=== PATIENT | female | born 1960 | race African-American/Black ===

== ENCOUNTER 2017-05-05 16:39 | Emergency (ER) | payer BC ==
[2012-10-13 22:44] VITALS: BMI 28.9
[2017-05-05 17:31] LABS: BASOPHILS 0.2 % (0-2); EOSINOPHILS 0.2 % (0-7); HEMATOCRIT 38.3 % (36.0-48.0); HEMOGLOBIN 12.6 g/dL (12-16); LYMPHOCYTES 30.6 % (15-50); MCH 29.7 pg (26.0-34.0); MCHC 32.9 g/dL (31.0-37.0); MCV 90.3 fL (80.0-100.0); MEAN PLATELET VOLUME 11.4 fL (7.4-10.4); MONOCYTES 6.2 % (2-11); NEUTROPHILS 62.8 % (40-80); PLATELET COUNT 217 10x3/uL (130-400); RBC 4.24 10x6/uL (4.00-5.40); WBC 6.1 10x3/uL (4.8-10.8)
[2017-05-05 17:38] LABS: APPEARANCE CLEAR (CLEAR); BILIRUBIN NEGATIVE (NEGATIVE); COLOR YELLOW (YELLOW); GLUCOSE NEGATIVE (NEGATIVE); KETONE NEGATIVE (NEGATIVE); NITRITE NEGATIVE (NEGATIVE); PROTEIN NEGATIVE (NEGATIVE); SPECIFIC GRAVITY 1.015 (1.005-1.020); UROBILINOGEN NORMAL (NORMAL)
[2017-05-05 17:51] LABS: ALBUMIN 3.7 g/dL (3.4-5.0); ANION GAP 16.6 mmol/L (8-16); BILIRUBIN - TOTAL 0.62 mg/dL (0.2-1.3); POTASSIUM - SERUM 3.6 mmol/L (3.5-5.1); PROTEIN - SERUM 8.7 g/dL (6.4-8.2)
[2017-05-05 19:42] LABS: CREATINE KINASE 100 UL (21-215)
[2017-05-05 19:44] LABS: TROPONIN-I < 0.017 ng/mL (0.000-0.060)
== END 2017-05-05 21:29 | disposition home or self-care (01) ==
LOC: D.ER 16:39
PROVIDERS: Emergency Medicine; Nurse Practitioner Family
DX: R53.1 Weakness (principal); F41.9 Anxiety disorder, unspecified; K21.9 Gastro-esophageal reflux disease without esophagitis

== ENCOUNTER 2017-08-23 13:11 | Emergency (ER) | payer BC | END 2017-08-23 20:38 | disposition home or self-care (01) | LOC: D.ER 13:11 | DX: J20.9 Acute bronchitis, unspecified (principal); B34.9 Viral infection, unspecified; K21.9 Gastro-esophageal reflux disease without esophagitis ==

== ENCOUNTER 2019-04-14 07:41 | Observation (INO) | payer BC ==
[~2019-04-14] VITALS: Ht 162.6 cm; Wt 81.8 kg
[2019-04-14] MEDS ORDERED: PROTONIX40 MG PO (07:51)
[2019-04-14 08:05] VITALS: BP 145/89
[2019-04-14 08:08] LABS: BASOPHILS 0 % (0-2); EOSINOPHILS 0.4 % (0-7); HEMATOCRIT 39.4 % (36.0-48.0); HEMOGLOBIN 12.8 g/dL (12-16); IMMATURE GRANULOCYTES 0.2 % (0-5); LYMPHOCYTES 46.6 % (15-50); MCH 28.8 pg (26.0-34.0); MCHC 32.5 g/dL (31.0-37.0); MCV 88.7 fL (80.0-100.0); MEAN PLATELET VOLUME 11.3 fL (7.4-10.4); MONOCYTES 7.4 % (2-11); NEUTROPHILS 45.4 % (40-80); PLATELET COUNT 238 10x3/uL (130-400); RBC 4.44 10x6/uL (4.00-5.40); RDW 14.1 % (11.5-14.5); WBC 4.6 10x3/uL (4.8-10.8)
[2019-04-14 08:21] LABS: APTT 37.3 SECONDS (22.8-39.4); INR 0.95 (0.85-1.17); PROTIME 12.2 SECONDS (11.6-15.0)
[2019-04-14 08:30] LABS: ALBUMIN 3.5 g/dL (3.4-5.0); ALKALINE PHOSPHATASE 105 U/L (46-116); ALT (SGPT) 17 U/L (10-68); BILIRUBIN - TOTAL 0.64 mg/dL (0.2-1.3); CALC OSMOLALITY 287 mosm/kg (275-300); CALCIUM 8.7 mg/dL (8.5-10.1); CARBON DIOXIDE 28.9 mmol/L (21.0-32.0); CHLORIDE - SERUM 107 mmol/L (98-107); GLUCOSE 86 mg/dL (74-106); POTASSIUM - SERUM 3.6 mmol/L (3.5-5.1); PROTEIN - SERUM 8.7 g/dL (6.4-8.2); SODIUM 145 mmol/L (136-145); UREA NITROGEN 12 mg/dL (7-18); eGFR NON AFRICAN AMERICAN 60 mL/min (90-120)
[2019-04-14 09:05] LABS: CKMB 0.2 U/L (0.0-3.6); CREATINE KINASE 74 UL (21-215); TROPONIN-I < 0.017 ng/mL (0.000-0.060)
--- NOTE | 2019-04-14 09:22 | NUR ---
PT TAKEN TO STRESS TEST VIA WC.
--- NOTE | 2019-04-14 09:58 | NUR ---
PT TAKEN TO GET STRESS TEST FROM ER. PT TO BE TAKEN FROM STRESS TEST TO ROOM 2126.
[2019-04-14 12:45] VITALS: BP 145/91
--- NOTE | 2019-04-14 13:00 | NUR ---
RECEIVED PT TO ROOM 2125 VIA WHEELCHAIR, PT A/O X4, RESP EVEN AND NONLABORED ON RA, ABLE TO TRANSFER SELF FROM WHEELCHAIR TO BED WITH STEADY GATE. RT AC IMELDA SL. ORIENTED PT TO ROOM AND CALL LIGHT, WILL ASSESS PT AND START PLAN OF CARE.
[2019-04-14 13:20] VITALS: BP 145/91; Ht 162.6 cm; Wt 81.8 kg
--- NOTE | 2019-04-14 15:21 | NUR ---
PT RESTING COMFORTABLY IN BED, DENIES ANY NEEDS AT THIS TIME. CALL LIGHT IN REACH, BEDSIDE RAILS X 2, NAD NOTED, WILL CONTINUE TO MONITOR.
[2019-04-14 15:36] LABS: CKMB 0.3 U/L (0.0-3.6); CREATINE KINASE 62 UL (21-215)
[2019-04-14 15:39] LABS: TROPONIN-I < 0.017 ng/mL (0.000-0.060)
--- NOTE | 2019-04-14 16:04 | HP ---
PATIENT: CLAUDIO MERA MEDICAL RECORD: [id number] ACCOUNT: [id number] LOCATION:[address] : 56 ADMISSION DATE: 04/14/19 PCP: DARREL GERMAIN HISTORY AND PHYSICAL EXAMINATION ADMITTING DIAGNOSES: 1. Chest pain compatible with angina. 2. Family history of coronary artery disease. HISTORY OF PRESENT ILLNESS: Mrs. Mera presents with escalating pain since Saturday. She began having chest pain Saturday. There is definitely a positional component to the chest pain. There is tenderness of the chest wall. However, there is a pressure, tightness component to this as well. She received narcotics in the ER, it did not relieve the pain. Nitro; however, did relieve the pain. She is pain free at this time. Her EKG is with no significant ST-T abnormalities. Her cardiac risk factors are negative except a relatively strong family history of coronary artery disease. PHYSICAL EXAMINATION: CONSTITUTIONAL/GENERAL APPEARANCE: Well nourished, well developed, appears stated age. EYES: Lids and conjunctivae noninjected. No discharge. No pallor. ENT: Lips within normal limit. No cyanosis. No pallor. NECK: Carotid arteries, bilateral normal upstroke. No bruits. No thrills. No jugular venous pressure or distention. CERVICAL LYMPH NODES: Nontender. Nonenlarged. THYROID: Not enlarged. No nodules. CARDIOVASCULAR: Precordial exam, nondisplaced. No heaves or pericardial thrills. Rate and rhythm, regular. Heart sounds, normal S1, normal S2. No S3, no gallop, no rub. Systolic murmur, not heard. Diastolic murmur, not heard. RESPIRATORY: Respiratory effort, unlabored. Normal curvature. No thoracic deformity. No chest wall tenderness. Percussion, resonant. Auscultation, clear. No wheezes, no rales, no rhonchi. ABDOMEN: Soft, nondistended, nontender. No abdominal pain, no vomiting and normal appetite. MUSCULOSKELETAL: No joint tenderness, normal gait, normal tone. SKIN: Warm and dry. OVERALL IMPRESSION: Chest pain clearly 2 components, one is a chest wall tenderness I think is musculoskeletal. However, the other that is more of a pressure, band-like sensation around the chest is more compatible with angina that was what was relieved with nitro. We will risk stratify with stress testing Cardiolite imaging. TRANSINT:[id number] Voice Confirmation ID: [id number] DOCUMENT ID: [id number] HISTORY AND PHYSICAL [id number] CLAUDIO MERA, JOSEPH MOONEY at 1604 CC: [id number] DICTATION DATE: 04/14/19 1115 CANDLE WRAPPER: 04/14/19 1151 ADM IN [id number] [place] [address]
--- NOTE | 2019-04-14 16:37 | NUR ---
PROVIDED VERBAL AND WRITTEN DISCHARGE TEACHING TO PT, WHO VERBALIZED UNDERSTANDING REGARDING TEACHING.D/C RT AC IV WITH CATHETER TIP INTACT, PT WILL NOTIFY NURSE WHEN READY FOR WHEELCHAIR.
[2019-04-14 16:46] VITALS: BP 142/90
--- NOTE | 2019-04-14 17:10 | NUR ---
PT LEFT UNIT VIA WHEELCHAIR, WITH ALL BELONGINGS, NAD NOTED.
--- NOTE | 2019-04-15 07:10 | MORECARE ---
CASE MANAGEMENT DISCHARGE SUMMARY PATIENT: CLAUDIO MERA UNIT: [id number] ADM DATE: 04/14/19 AGE: 58 : 56 SEX: F ROOM/BED: D.9126 AUTHOR: CINDY WARD PHYSICIAN: REFERRING PHYSICIAN: JOSEPH TAFOYA MD DATE OF SERVICE: 04/15/19 Discharge Plan Patient Name: CLAUDIO MER[facility] [facility] 1960 Planned Disposition: Home Anticipated Discharge Date: 04/14/19 Discharge Date: 04/14/2019 Expected LOS: 1 Initial Reviewer: [id number] Initial Review Date: 04/15/2019 Generated: 04/15/19 8:09 am Patient Name: CLAUDIO MERA Page [id number] at 0710 All edits/amendments must be made on the electronic document DICTATION DATE: 04/15/19708 UNITIZER: CHAD 04/15/19708 RPT#: [id number] DC DATE:04/14/19 STATUS: DIS IN [facility] [address] [place] [address] END OF REPORT
--- NOTE | 2019-04-16 13:30 | DS ---
PATIENT:CLAUDIO SANTOYO :56 MEDICAL RECORD: [id number] DISCHARGE SUMMARY ADMISSION DATE: 04/14/19 DISCHARGE DATE: 04/14/19 DATE OF DISCHARGE: 04/14/2019. DISCHARGE DIAGNOSES: 1. Chest pain. 2. Normal nuclear stress test. 3. Family history of coronary artery disease. HISTORY OF PRESENT ILLNESS: Mrs. Santoyo presents with chest discomfort some typical, some atypical components for angina; however, nuclear stress test was absolutely normal. Discharged home to follow up with her primary care physician for noncardiac chest pain workup. TRANSINT:[id number] Voice Confirmation ID: [id number] DOCUMENT ID: [id number] JOSEPH TAFOYA MD at 1330 CC: [id number] DICTATION DATE: 04/14/19 1606 ACID CUTTER: 04/15/19 0828 DIS IN 04/14/19 [id number] [place] [address]
--- NOTE | 2019-04-16 13:30 | ST ---
PATIENT:CLAUDIO MERA MEDICAL RECORD: [id number] SEX: F LOCATION:D. [address]212 ORDER #: ADMISSION DATE: 04/14/19 AGE OF PATIENT: 58 REFERRING PHYSICIAN: INTERPRETING PHYSICIAN: JOSEPH TAFOYA MD DATE OF SERVICE: 04/14/2019 PROCEDURE: Nuclear stress test. INDICATION: Chest pain. She was exercised on standard Lexiscan protocol with 33 mCi of sestamibi injected at peak stress, 11 mCi used previously for rest images. FINDINGS: Gated SPECT reveals preserved ejection fraction at 65% with good wall motion and thickening and brightening throughout all segments. SPECT imaging Cardiolite was used as myocardial fusion agent. There is homogeneous uptake throughout all segments at rest and stress with no evidence of inducible ischemia or previous infarction. OVERALL IMPRESSION: 1. This is a normal nuclear stress test with no evidence of inducible ischemia or previous infarction. 2. Gated SPECT reveals a preserved ejection fraction at 65%. In this patient with ongoing symptomatology, the current scan does not suggest the presence of hemodynamically significant coronary artery disease. Evaluate noncardiac etiology of chest pain. TRANSINT:[id number] Voice Confirmation ID: [id number] DOCUMENT ID: [id number] JOSEPH TAFOYA MD at 1330 CC: [id number] DICTATION DATE: 04/14/19 1605 ASSOCIATE MATERIAL HANDLER: 04/15/19 0827 DIS IN 04/14/[address] [address]
== END 2019-04-14 17:11 | disposition home or self-care (01) ==
LOC: D.ER 07:41 → D.M2 08:34 → OBSVTIME 09:26 → D.M2 09:39
PROVIDERS: Family Medicine; ADMIT Internal Medicine Interventional Cardiology; ATTEND Internal Medicine Interventional Cardiology
DX: R07.9 Chest pain, unspecified (principal); Z82.49 Family history of ischemic heart disease and other diseases of the circulatory system